=== PATIENT | male | born 1945 | race Caucasian/White ===

== ENCOUNTER 2017-09-04 23:15 | Emergency (ER) | payer MEDICARE, BC ==
[~2017-09-04] VITALS: Ht 177.8 cm; Wt 83.9 kg
[2017-09-04] MEDS ORDERED: DIPH,PERTUSS(ACELL),TET VAC/PF 0.5 ML IM-VACC ONE (23:30)
[2017-09-04] MEDS ORDERED: BACITRACIN ZINC OINT 500U/GM, 0.9 GM ONE (23:44)
[2017-09-05] MEDS ORDERED: DIPH,PERTUSS(ACELL),TET VAC/PF 0.5 ML IM-VACC ONE
[2017-09-05] MEDS ORDERED: LIDOCAINE-MPF 1%, 5ML INFIL ONE
[2017-09-05] MEDS ORDERED: DIPH,PERTUSS(ACELL),TET PED/PF 0.5 ML IM-VACC ONE
[2017-09-05 01:21] VITALS: BP 148/83
== END 2017-09-05 01:23 | disposition home or self-care (01) ==
LOC: ED 23:59
DX: S61.412A Laceration without foreign body of left hand, initial encounter (principal); W45.8XXA Other foreign body or object entering through skin, initial encounter; Y93.89 Activity, other specified; Y92.89 Other specified places as the place of occurrence of the external cause; Y99.8 Other external cause status
CPT/HCPCS: 12032; 90471; 90715

== ENCOUNTER 2020-10-19 15:13 | Outpatient (CLI) | payer MEDICARE, BC | END 2020-10-19 23:59 | disposition home or self-care (01) | LOC: CFH 15:13 | PROVIDERS: ATTEND Internal Medicine | DX: J44.9 Chronic obstructive pulmonary disease, unspecified (principal); R06.02 Shortness of breath | CPT/HCPCS: 71250 ==